=== PATIENT | male | born 1985 ===

== ENCOUNTER 2016-12-16 13:01 | Emergency (ER) | payer BC ==
[2016-12-16 14:34] VITALS: BP 124/78
--- NOTE | 2016-12-16 15:12 | UC ---
Hand/Wrist HPI - HPI Summary HPI Summary: pt reports that he fell/tripped off of a stage with hands outstretched in front of him two days ago. Denies immediate onset of pain, pt reports that pain and swelling in right hand at dorsal side of right hand and at metacarpals 2-4 began this morning. - History Of Current Complaint Chief Complaint: UCUpperExtremity Stated Complaint: RIGHT HAND PAIN Time Seen by Provider: 12/16/16 14:56 Hx Obtained From: Patient ?: No Onset/Duration: Gradual Onset, Lasting Hours Severity Initially: Mild Severity Currently: Mild Character Of Pain: Dull, Aching, Stiffness Aggravating Factor(s): Movement Alleviating: Rest Associated Signs And Symptoms: Positive: Swelling, Redness Related History: Dominant Hand Right - Risk Factors Compartment Syndrome Risk Factors: Pain - Allergies/Home Medications Allergies/Adverse Reactions: Allergies Allergy/AdvReac Type Severity Reaction Status Date / Time No Known Allergies Allergy Verified 12/16/16 14:30 Home Medications: Home Medications Multivitamins/Minerals TAB* [Thera M Plus TAB*] 1 tab PO DAILY 12/16/16 [ History Confirmed 12/16/16] PMH/Surg Hx/FS Hx/Imm Hx Previously Healthy: Yes - Surgical History Surgical History: None - Family History Known Family History: Positive: Other - positive for FMH for contusion - Social History Lives: With Family Alcohol Use: Weekly Substance Use Type: None Smoking Status (MU): Never Smoked Tobacco Review of Systems Constitutional: Negative Skin: Other - erythema right dorsal side of hand Eyes: Negative ENT: Negative Respiratory: Negative Cardiovascular: Negative Gastrointestinal: Negative Genitourinary: Negative Motor: Decreased ROM - right hand an dwrist Neurovascular: Negative Musculoskeletal: Decreased ROM - right hand and wrist, Edema, Myalgia Neurological: Negative Psychological: Negative All Other Systems Reviewed And Are Negative: Yes Physical Exam Triage Information Reviewed: Yes Appearance: Well-Appearing Vital Signs: Initial Vital Signs Temp 98.6 F 12/16/16 14:31 Pulse 67 12/16/16 14:31 Resp 16 12/16/16 14:31 BP 124/78 12/16/16 14:31 Pulse Ox 99 12/16/16 14:31 Vital Signs Reviewed: Yes Eye Exam: Normal Neck exam: Normal Respiratory Exam: Other Respiratory: Positive: No respiratory distress Musculoskeletal: Positive: ROM Limited @ - right hand, Edema @ - right dorsal side hand at metacarpals 2-4 Neurological Exam: Normal Psychological Exam: Normal Skin Exam: Other - mild erythema, right dorsal of hand Hand/Wrist Course/Dx - Differential Dx/Diagnosis Differential Diagnosis/HQI/PQRI: Contusion, Fracture Provider Diagnoses: right hand contusion. FINDINGS: The adequately corticated bones are in normal alignment. No significant focal osseous. abnormality or fracture is seen. Joint spaces appear maintained. IMPRESSION: Normal right hand radiograph. If the patient's symptoms persist, follow-up imaging is recommended. Discharge - Discharge Plan Condition: Stable Disposition: HOME Patient Education Materials: Contusion in Adults (ED), RICE Therapy (ED) Referrals: Suhail Hood MD [Primary Care Provider] - Rubin Pyle MD [Medical Doctor] - Additional Instructions: FINDINGS: The adequately corticated bones are in normal alignment. No significant focal osseous abnormality or fracture is seen. Joint spaces appear maintained.
--- NOTE | 2016-12-16 15:37 | RAD ---
INDICATION: Pain over the base of the metacarpals 2 days after a fall COMPARISON: None. TECHNIQUE: 4 views of the right hand were obtained. FINDINGS: The adequately corticated bones are in normal alignment. No significant focal osseous abnormality or fracture is seen. Joint spaces appear maintained. IMPRESSION: Normal right hand radiograph. If the patient's symptoms persist, follow-up imaging is recommended.
== END 2016-12-16 15:59 | disposition home or self-care (01) ==
LOC: UCCORT 13:01
DX: S60.221A Contusion of right hand, initial encounter (principal); W17.89XA Other fall from one level to another, initial encounter; Y93.9 Activity, unspecified; Y92.89 Other specified places as the place of occurrence of the external cause
CPT/HCPCS: 99212; G0463

== ENCOUNTER 2019-07-05 10:43 | Emergency (ER) | payer BC ==
[2019-07-05 10:59] VITALS: BP 146/86
--- NOTE | 2019-07-05 11:35 | UC ---
Knee Pain HPI - HPI Summary HPI Summary: Pt presents with c/o left knee pain s/p "roughing" with his 75 lb dog. Pt denies any trauma to knee or previous injury or surgery to left knee. Pt states he woke this morning with increased pain and swelling to left knee. - History of Current Complaint Chief Complaint: UCLowerExtremity Stated Complaint: LEFT KNEE PAIN Time Seen by Provider: 07/05/19 11:25 Hx Obtained From: Patient Hx From Patient Unobtainable Due To: Dementia Onset/Duration: Sudden Onset, Still Present Severity Initially: Mild Severity Currently: Moderate Pain Intensity: 7 Character: Dull, Aching, Stiffness Aggravating Factor(s): Movement, Weight Bearing, Prolonged Standing, Stairs Alleviating Factor(s): Rest, Position Associated Signs And Symptoms: Positive: Swelling, Weakness Able to Bear Weight: Yes - minimal - Risk Factors Septic Arthritis Risk Factor: Negative Gout Risk Factor: Male - Allergies/Home Medications Allergies/Adverse Reactions: Allergies Allergy/AdvReac Type Severity Reaction Status Date / Time No Known Allergies Allergy Verified 07/05/19 10:59 Home Medications: Home Medications NK [No Home Medications Reported] 07/05/19 [History Confirmed 07/05/19] PMH/Surg Hx/FS Hx/Imm Hx Previously Healthy: Yes - Surgical History Surgical History: None - Family History Known Family History: Positive: Other - positive for FMH for contusion - Social History Occupation: Employed Full-time Lives: With Family Alcohol Use: Weekly Substance Use Type: None Smoking Status (MU): Never Smoked Tobacco Have You Smoked in the Last Year: No Review of Systems All Other Systems Reviewed And Are Negative: Yes Constitutional: Positive: Negative Skin: Positive: Negative Eyes: Positive: Negative ENT: Positive: Negative Respiratory: Positive: Negative Cardiovascular: Positive: Negative Gastrointestinal: Positive: Negative Genitourinary: Positive: Negative Motor: Positive: Decreased ROM - left knee Musculoskeletal: Positive: Arthralgia, Decreased ROM, Edema, Myalgia Neurological: Positive: Negative Psychological: Positive: Negative Is Patient Immunocompromised?: No Physical Exam Triage Information Reviewed: Yes Appearance: Pain Distress - with PE of left knee Vital Signs: Initial Vital Signs Temp 98.9 F 07/05/19 10:53 Pulse 78 07/05/19 10:53 Resp 18 07/05/19 10:53 BP 146/86 07/05/19 10:53 Pulse Ox 98 07/05/19 10:53 Vital Signs Reviewed: Yes Eye Exam: Normal ENT: Positive: Hearing grossly normal Dental Exam: Normal Neck exam: Normal Respiratory: Positive: No respiratory distress Musculoskeletal: Positive: ROM Limited @ - lfet knee, Other: - c/o pain with ROM , valgus varus testing limited due to pain. Neurological Exam: Normal Psychological Exam: Normal Skin Exam: Normal Knee Pain Course/Dx - Differential Dx/Diagnosis Differential Diagnosis/HQI/PQRI: Fracture (Closed), Internal Derangement Of Knee , Sprain, Strain Provider Diagnosis: Left knee sprain Discharge ED - Sign-Out/Discharge Documenting (check all that apply): Patient Departure All imaging exams completed and their final reports reviewed: No Studies - Discharge Plan Condition: Stable Disposition: HOME Patient Education Materials: Knee Sprain (ED), Ice Pack Application (ED), Safe Use of NSAIDs (ED) Referrals: Kai Mcgovern MD [Medical Doctor] - If Needed Suhail Hood MD [Primary Care Provider] - If Needed Additional Instructions: Please follow up with an orthopedic provider as needed. - Billing Disposition and Condition Condition: STABLE Disposition: Home
== END 2019-07-05 11:51 | disposition home or self-care (01) ==
LOC: UCCORT 10:43
DX: S83.92XA Sprain of unspecified site of left knee, initial encounter (principal); X58.XXXA Exposure to other specified factors, initial encounter; Y92.9 Unspecified place or not applicable
CPT/HCPCS: 99212; G0463